=== PATIENT | female | born 1930 ===

== ENCOUNTER 2018-10-15 05:42 | Day surgery (SDC) | payer MEDICARE, OTHER ==
--- NOTE | 2018-10-14 11:15 | NUR ---
ADMITTED VIA [facility] [employer] -[id number]
[2018-10-15] VITALS (9 sets, daily range): BP systolic 132–184; BP diastolic 60–86
[~2018-10-15] VITALS: Ht 168 cm; Wt 68.0 kg
[2018-10-15] MEDS ORDERED: Silver Nitrate Stick TOPIC ONE (06:22)
[2018-10-15] MEDS ORDERED: Lidocaine 1% Plain 30 ml INJ ONE (06:22)
[2018-10-15] MEDS ORDERED: Lugol's (Strong Iodine) 30ml btl TOPIC ONE (06:30)
[2018-10-15] MEDS ORDERED: Ferric Subsulfate (Monsel's Soln) 30ml TOPIC ONE (06:30)
[2018-10-15] MEDS ORDERED: BYSTOLIC10 MG ORAL (06:44)
[2018-10-15] MEDS ORDERED: apresoline PO (06:44)
[2018-10-15] MEDS ORDERED: BENICAR40 MG ORAL (06:44)
[2018-10-15] MEDS ORDERED: fentaNYL 100 mcg/2 mL IV ONE (06:56)
[2018-10-15] MEDS ORDERED: Ketorolac 30mg Inj ONE (07:00)
[2018-10-15] MEDS ORDERED: cefOXitin Sod 1 GM in D5W 55 ML IVPB ONE (07:00)
[2018-10-15] MEDS ORDERED: Lidocaine 1% MPF 10mg/ml 5ml ONE (07:00)
[2018-10-15] MEDS ORDERED: Propofol 200mg/20ml IV ONE ×2 (07:00→08:14)
[2018-10-15] MEDS ORDERED: Metoclopramide 10mg/2ml Inj ONE (07:00)
[2018-10-15] MEDS ORDERED: cefOXitin 1gm Inj ONE (07:27)
[2018-10-15] MEDS ORDERED: Midazolam 2mg/2ml Inj ONE (07:50)
--- NOTE | 2018-10-15 07:55 | Pre-Procedure Note/Attestation ---
Pre-Procedure Note/Attestation Complete Prior to Procedure Planned Procedure: not applicable Procedure Narrative: cold knife cone Indications for Procedure Pre-Operative Diagnosis: severe cervical dysplasia Attestation I attest that I discussed the nature of the procedure; its benefits; risks and complications; and alternatives (and the risks and benefits of such alternatives ), prior to the procedure, with the patient (or the patient's legal front desk representative). I attest that, if there was a reasonable possibility of needing a blood transfusion, the patient (or the patient's legal front desk representative) was given the [facility] standardized written summary, pursuant to the [employer] Blood Safety Act ([place] Health and Safety Code # 1645, as amended). I attest that I re-evaluated the patient just prior to the surgery and that there has been no change in the patient's H&P, except as documented below: Renae Hoskins MD Oct 15, 2018 07:55
[2018-10-15] MEDS ORDERED: DiphenhydrAMINE 50mg/ml Inj IVP PRN ×2 (08:00→08:30)
[2018-10-15] MEDS ORDERED: Norco 5mg/325mg tab ORAL PRN (08:00)
[2018-10-15] MEDS ORDERED: D5 1/2NS 1,000 ML IV SCH (08:00)
[2018-10-15] MEDS ORDERED: Tylenol #3 tab (300mg/30mg) ORAL PRN (08:00)
[2018-10-15] MEDS ORDERED: HYDROmorphone 1mg/ml Carpuject SUBQ PRN (08:00)
[2018-10-15] MEDS ORDERED: Atropine Inj 1mg/10ml Syr ONE (08:14)
[2018-10-15] MEDS ORDERED: Dexamethasone 4mg/ml vial ONE (08:14)
[2018-10-15] MEDS ORDERED: Lidocaine 1% 10mg/ml/Epi 0.005mg/ml 30ml vial INJ ONE (08:23)
[2018-10-15] MEDS ORDERED: LR 1000ml 1,000 ML IVLG SCH (08:26)
--- NOTE | 2018-10-15 08:26 | Anethesia Preoperative Eval ---
Anesthesia Pre-op PMH/ROS General Date of Evaluation: Oct 15, 2018 Anesthesiologist: Kaiser ASA Score: ASA 3 Mallampati Score Class I : Soft palate, uvula, fauces, pillars visible Class II: Soft palate, uvula, fauces visible Class III: Soft palate, base of uvula visible Class IV: Only hard plate visible Mallampati Classification: Class II Surgeon: Aidee Diagnosis: Cervical dysplasia Surgical Procedure: Cone biopsy Anesthesia History: none Family History: no anesthesia problems Allergies: Coded Allergies: No Known Allergies (Unverified , 10/14/18) Medications: see eMAR Patient NPO?: Yes NPO Date: Oct 14, 2018 NPO Time: 22:00 Past Medical History Cardiovascular: Reports: HTN; Denies: CAD, LA, valve dz, arrhythmia, other Pulmonary: Denies: asthma, COPD, TRACY, other Gastrointestinal/Genitourinary: Denies: GERD, CRI, ESRD, other Neurologic/Psychiatric: Denies: dementia, CVA, depression/anxiety, TIA, other Endocrine: Reports: DM; Denies: hypothyroidism, steroids, other HEENT: Denies: cataract (L), cataract (R), glaucoma, MAKAH (L), MAKAH (R), other Hematology/Immune: Reports: anemia - chronic, other - Left breast cancer; Denies: DVT, bleeding disorder Musculoskeletal/Integumentary: Reports: other - RA; Denies: OA, RA, DJD, DDD, edema PSxH Narrative: Left breast mastectomy, bilateral cataracts Anesthesia Pre-op Phys. Exam Physician Exam Last Vital Signs Date Time Temp Pulse Resp B/P (MAP) Pulse Ox O2 Delivery O2 Flow Rate FiO2 10/15/18 06:38 Room Air 10/15/18 06:34 98.3 57 18 169/64 95 Constitutional: NAD Cardiovascular: RRR Respiratory: CTA Airway Exam Mallampati Score: Class II MO: full ROM: full Teeth: intact Anesthesia Pre-op A/P Labs see chart Studies Pre-op Studies: EKG - sr Risk Assessment & Plan Assessment: ASA III Plan: GA Status Change Before Surgery: No Pre-Antibiotics Drug: Cefoxitin 1g Given Within 1 Hr of Incision: Yes Aurea Steven MD Oct 15, 2018 08:26
[2018-10-15] MEDS ORDERED: Hydromorphone 0.5mg/0.5ml inj IVP PRN (08:30)
[2018-10-15] MEDS ORDERED: fentaNYL 100 mcg/2 mL IV PRN (08:30)
--- NOTE | 2018-10-15 09:12 | Immediate Post-Op Evaluation ---
Immediate Post-Op Evalulation Immediate Post-Op Evalulation Procedure: cone bx Nausea: No Vomiting: No Hydration Status: adequate Given Within 1 Hr of Incision: Yes Ashish Ledbetter MD Oct 15, 2018 09:12
--- NOTE | 2018-10-15 10:06 | 48 Hour Post Anesthesia Eval ---
Post Anesthesia Evaluation Procedure: cone bx Nausea: No Vomiting: No Hydration Status: adequate Mental Status/LOC: patient returned to baseline Follow-up care needed: ready to discharge Ashish Ledbetter MD Oct 15, 2018 10:06
--- NOTE | 2018-10-22 10:16 | Brief Operative Note ---
Immediate Post Operative Note Operative Note Pre-op Diagnosis: severe cervical dysplasia Procedure: cold knife cone/ clc dictation [id number] Post-op Diagnosis: same as pre-op Surgeon: taryn Anesthesiologist: carmina Ledbetter Anesthesia: general Specimen: yes - cold knfe cone and ecc Complications: none Condition: stable Fluids: crystalloid Estimated Blood Loss: minimal Drains: none Implant(s) used?: No Renae Hoskins MD Oct 22, 2018 10:16
--- NOTE | 2018-10-22 22:30 | Operative Note - Dictated ---
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 PROCEDURE: Cold knife biopsy. SURGEON: Renae Hoskins M.D. DISTRICT MANAGER [employer] SALES: None. ANESTHESIOLOGIST: . ANESTHESIA: . ESTIMATED BLOOD LOSS: . COMPLICATIONS: None. PROCEDURE IN DETAIL: After signing informed consent, the patient was taken to the operating room where general anesthesia was induced. The patient was sterilely prepped and draped and placed in dorsal lithotomy position. A weighted speculum was placed in the vagina. Cervix was identified and grasped with a tenaculum. Using an 11 blade, a cone-like incision was made circumferentially around the cervix and taken down to the level of internal cervical os. At which point, using Cruz scissors, a cone-shaped portion of the cervix was amputated. Suture was placed at 12 o'clock and then endocervical curettage was performed. At the end of the procedure, excellent hemostasis was assured both with Bovie and some [id number] sutures in the cervix. All instrument and lap counts were correct x2. The patient was taken to the recovery area in sedated and in stable condition. Her daughter was there to resume care of her at the end of the procedure. Renae Hoskins M.D. DR: MIKE JOB#: [id number] CC:
== END 2018-10-15 11:50 | disposition home or self-care (01) ==
LOC: SUR 05:42
DX: D06.9 Carcinoma in situ of cervix, unspecified (principal); I10 Essential (primary) hypertension; E78.5 Hyperlipidemia, unspecified; I25.10 Atherosclerotic heart disease of native coronary artery without angina pectoris; E11.9 Type 2 diabetes mellitus without complications; M06.9 Rheumatoid arthritis, unspecified; D64.9 Anemia, unspecified; Z85.3 Personal history of malignant neoplasm of breast
CPT/HCPCS: 57520; J0694; J1100; J1885; J2001; J2250; J2405; J2704; J2765; J3010; 94003; 94150